=== PATIENT | female | born 1970 | race Hispanic/Latino ===

== ENCOUNTER 2022-06-11 10:01 | Emergency (ER) | payer SELFPAY ==
--- NOTE | 2022-06-11 10:05 | ED_ITS ---
HPI - Dental/Oral General Stated complaint: Dental Pain Time Seen by Provider: 06/11/22 10:34 Mode of arrival: ambulatory Limitations: no limitations History of Present Illness HPI Narrative: 52-year-old female presents with concern for left lower jaw swelling, pain, tenderness, painful swallowing. She denies injury or trauma. She denies known fever, chills, body aches, sweats. She reports she is not drooling. She reports symptoms started yesterday. MD Complaint: tooth pain Related Data Allergies Allergy/AdvReac Type Severity Reaction Status Date / Time No Known Allergies Allergy Verified 06/11/22 10:39 Review of Systems Review of Systems: CONSTITUTIONAL: Denies malaise, chills, sweats, or fever. EYES: Denies visual changes ENT: Denies rhinorrhea, congestion, sinus pain, otalgia or sore throat. Reports left lower jaw swelling, tenderness CARDIOVASCULAR: Denies chest pain, palpitations RESPIRATORY: Denies cough or dyspnea. SKIN: Denies rash or itching. MUSCULOSKELETAL: Denies myalgia. NEUROLOGIC: Denies numbness, weakness, or headache. All systems reviewed & are unremarkable except as noted in HPI and below PMFSH Comments At time of signature, agree with nursing past medical, surgical, social and family history. There is no relevant family history pertinent to the presenting complaint Exam Narrative: GENERAL: Well-appearing, well-nourished, and in no acute distress. HEAD: Normocephalic, atraumatic. EYES: PERRLA, sclera clear ENT: Nares clear. Mucous membranes moist. Exam limited, patient has difficulty opening her mouth fully, visible oropharynx is erythematous. Swelling, warmth, tenderness noted below the left jaw. No drooling or muffled voice NECK: Supple. CHEST: No respiratory distress. Speaks in full sentences. HEART: Regular rate and rhythm. SKIN: Warm, dry, no visible rash. NEURO: Alert and oriented x3. PSYCH: Normal mood and affect Course Course Emergency Course: Patient is aware of, understands and agrees to be seen in the emergency d epartment. EMS transfer offered, patient refused. Patient agrees to proceed directly to the emergency department. Portions of this record may have been created with voice recognition software Level of Care: Express Care Visit Vital Signs Vital signs: Reviewed. MDM - Dental/Oral MDM Narrative Medical decision making narrative: Exam findings for further evaluation emergency department; patient is non-toxic appearing and is in no distress. Critical Care Time Critical Care Time Critical Care Time: No Discharge Plan Discharge Clinical Impression: Jaw swelling Patient Disposition: Acute Care Hospital Condition: Stable Follow-up/Referrals: UNKNOWN,DOCTOR [Non-Staff] - Time of Disposition: 10:44
[2022-06-11 10:17] VITALS: BP 150/80; PULSE 115; RESP 16; TEMP 37.2; O2SAT 99
== END 2022-06-11 10:45 | disposition short-term general hospital (02) ==
PROVIDERS: Emergency Provider Nurse Practitioner
DX: R22.0 Localized swelling, mass and lump, head (principal)
CPT/HCPCS: 99202; G0463